=== PATIENT | female | born 2000 | race Caucasian/White ===

== ENCOUNTER 2020-08-19 23:06 | Emergency (ER) | payer MEDICAID ==
[~2020-08-19] VITALS: Ht 149.9 cm; Wt 55.0 kg
[2020-08-20] MEDS ORDERED: BACITRACIN ZINC OINT UDPKT TOP ONE (02:15)
[2020-08-20] MEDS ORDERED: IBUPROFEN 600MG TABLET PO ONE (02:15)
[2020-08-20] MEDS ORDERED: LIDOCAINE HCL/PF 1% 10 MG/ML 5ML VIAL IJ ONE (02:15)
[2020-08-20] MEDS ORDERED: IBUP-2029 PO (03:30)
[2020-08-20] MEDS ORDERED: CEPH500T MT (03:38)
[2020-08-20 04:05] VITALS: BP 132/74
== END 2020-08-20 04:06 | disposition home or self-care (01) ==
LOC: ER 23:06
DX: L03.011 Cellulitis of right finger (principal)
CPT/HCPCS: 99282; J3490